=== PATIENT | male | born 1965 | race Caucasian/White ===

== ENCOUNTER → 2017-07-13 | Outpatient (POV) | payer OTHER, SELFPAY | PROVIDERS: Family Provider Nurse Practitioner Family; Visit Provider Internal Medicine | DX: G47.19 Other hypersomnia (principal) | CPT/HCPCS: 71020 ==

== ENCOUNTER → 2017-08-16 09:48 | Outpatient (CLI) | payer OTHER, SELFPAY ==
[2017-08-16 12:50] VITALS: BP 145/90; BP 168/95; PULSE 69; PULSE 87; RESP 16; RESP 22; O2SAT 97; O2SAT 99
[2017-08-16 12:51] VITALS: PULSE 69; PULSE 72
== END ==
PROVIDERS: Family Provider Nurse Practitioner Family; PCP Nurse Practitioner Family; Visit Provider Internal Medicine
DX: R06.02 Shortness of breath (principal)
CPT/HCPCS: 94060; 94618; 94640; 94726; 94727; 94729

== ENCOUNTER → 2017-10-14 07:57 | Outpatient (CLI) | payer OTHER, SELFPAY ==
--- NOTE | 2017-10-14 08:02 | US_ITS ---
US liver HISTORY: ITS.REASON: ELEVATED LIVER ENZYMES ORDERING PHYSICIAN: Taylor Miller PATIENT AGE: 52 years COMPARISON: None FINDINGS: PANCREAS:Unremarkable. No obvious mass or abnormal fluid collection. No ductal dilatation LIVER:There are diffuse increased echogenicity of the liver with poor through transmission of sound consistent with fatty liver. Normal sized portal vein. Normal size common bile duct. Appropriate directional blood flow within the portal vein. No focal liver lesions demonstrated. RIGHT KIDNEY:Right kidney measures 17 x 7 x 11 cm. There is a 7 x 8 cm cyst along the upper pole of the right kidney. No hydronephrosis GALLBLADDER:No gallstones, gallbladder wall thickening, pericholecystic fluid, or biliary dilatation. IMPRESSION: 1. Fatty liver. 2. Right renal cyst. 3. Otherwise negative hepatic/right upper quadrant ultrasound
== END ==
PROVIDERS: Family Provider Nurse Practitioner Family; PCP Nurse Practitioner Family; Visit Provider Nurse Practitioner Family
DX: R74.8 Abnormal levels of other serum enzymes (principal)
CPT/HCPCS: 76705

== ENCOUNTER → 2017-11-16 10:02 | Outpatient (CLI) | payer OTHER, SELFPAY ==
--- NOTE | 2017-11-16 10:10 | XR_ITS ---
XR ankle LT min 3V HISTORY: Pain and swelling ORDERING PHYSICIAN: Taylor Miller PATIENT AGE: 52 years FINDINGS: No acute fracture or dislocation. Well-circumscribed 8 mm calcific density is present at the tip of the medial malleolus and may be due to an old avulsion fracture. The joint space is well preserved. Small calcaneal spur is present. IMPRESSION: Old avulsion fracture of the medial malleolus, no acute finding
--- NOTE | 2017-11-16 10:10 | XR_ITS ---
XR ankle RT min 3V HISTORY: ITS.REASON: WILLARD ANKLE AND JOINT PAIN ORDERING PHYSICIAN: Taylor Miller PATIENT AGE: 52 years COMPARISON: FINDINGS: No fracture or dislocation. No lytic or blastic change. There is normal mineralization.. The joint spaces are well-preserved. No significant degenerative/arthritic changes. No erosive changes evident. There is a small calcaneal spur IMPRESSION: Small calcaneal spur otherwise negative right ankle
== END ==
PROVIDERS: PCP Nurse Practitioner Family; Visit Provider Nurse Practitioner Family
DX: M25.572 Pain in left ankle and joints of left foot (principal); M25.571 Pain in right ankle and joints of right foot
CPT/HCPCS: 73610

== ENCOUNTER → 2018-01-11 09:58 | Outpatient (CLI) | payer OTHER, SELFPAY ==
--- NOTE | 2018-01-11 10:04 | CA_ITS ---
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 apical images poor due to very tender scar from co-arc surgery. PATIENT INFORMATION HEIGHT: 68 WEIGHT:251 GENDER: Male B/P:118/88 2-D/M-MODE INTERPRETATION: 2-D MEASUREMENTS OBSERVED VALUES IN CMS Right Ventricular Dimension (RVDd) 2.3 Interventricular Septum (Thickness)(IVsd) 1.4 Left Ventricular Internal Dimensions(LVIDd) 5.6 Left Ventricular Posterior Wall (Thickness)(LVPWd) 1.3 Aortic Root 3.7 Aortic Cusp Separation 1.8 Left Atrial Dimensions (LAD) 3.5 2D 1. Technically difficult study because of the patient's factor and poor acoustic windows, repeat study with definitely contrast is recommended. 2. The left atrium is mildly enlarged, left ventricle is normal size, mild concentric left ventricular hypertrophy, visually estimated ejection fraction is probably 55% with no signal wall motion abnormality, endocardial surface of very poorly visualized. 3. The right atrium and right ventricle are normal size and contractility. 4. The aortic valve is minimally thickened and fibrosed. 5. The mitral and tricuspid valvular grossly normal. 6. The pulmonic valve is poorly visualized 7. No significant pericardial effusion noted. DOPPLER INTERROGATION: Doppler interrogation of the aortic, mitral and tricuspid valvular presence of mild aortic, mild mitral and tricuspid regurgitation, tricuspid and jet velocity insufficient for calculation of the right ventricular systolic pressure, diastolic parameters are inconclusive. CONCLUSION: 1. Technically difficult study, repeat study with Definity contrast is recommended. 2. Mildly enlarged left atrium, the systolic function, visually with no obvious regional wall motion abnormality, endocardial surface of very poorly visualized, diastolic parameters are inconclusive. 3. Mild aortic, mild mitral and tricuspid regurgitation 4. No significant pericardial effusion noted.
== END ==
PROVIDERS: Family Provider Nurse Practitioner Family; PCP Nurse Practitioner Family; Visit Provider Nurse Practitioner
DX: R06.02 Shortness of breath (principal); R06.9 Unspecified abnormalities of breathing
CPT/HCPCS: 93306

== ENCOUNTER → 2018-01-18 10:03 | Outpatient (CLI) | payer OTHER, SELFPAY ==
--- NOTE | 2018-01-18 10:03 | XR_ITS ---
XR foot wt bearing RT 3V HISTORY: ITS.REASON: Pain ORDERING PHYSICIAN: Sugey Rodriguez DPM PATIENT AGE: 52 years COMPARISON: None FINDINGS: There is mild hallux valgus with first metatarsophalangeal angle of 26 degrees with osteoarthritic change at the first metatarsophalangeal joint and dorsal bony spurring at the distal aspect of the first metatarsal. There is a small calcaneal spur. No fracture or dislocation. No lytic or blastic change. Mild bony hypertrophy involves the dorsal aspect of the medial cuneiform. IMPRESSION: Hallux valgus with osteoarthritis of the first MTP joint with bony hypertrophic change of the distal aspect of the first metatarsal
--- NOTE | 2018-01-18 10:03 | XR_ITS ---
XR foot wt bearing LT 3V HISTORY: ITS.REASON: pain ORDERING PHYSICIAN: Sugey Rodriguez DPM PATIENT AGE: 52 years COMPARISON: None FINDINGS: No fracture or dislocation. Normal alignment. Mild hypertrophic changes are present along the anterior and distal aspect of the tibia. Calcaneal spur is present at 9 mm. IMPRESSION: No acute finding. Normal alignment. Calcaneal spur.
--- NOTE | 2018-01-18 10:03 | XR_ITS ---
XR ankle wt bearing RT min 3V HISTORY: ITS.REASON: pain ORDERING PHYSICIAN: Sugey Rodriguez DPM PATIENT AGE: 52 years Comparison: None FINDINGS: No fracture or dislocation. No lytic or blastic change. There is normal mineralization.. The joint spaces are well-preserved. No significant degenerative/arthritic changes. No erosive changes evident. The talar dome has an unremarkable appearance. There is an os trigonum is a normal variant IMPRESSION: Negative ankle, no acute finding
--- NOTE | 2018-01-18 10:03 | XR_ITS ---
XR ankle wt bearing LT min 3V HISTORY: ITS.REASON: pain ORDERING PHYSICIAN: Sugey Rodriguez DPM PATIENT AGE: 52 years Comparison: None FINDINGS: No fracture or dislocation. No lytic or blastic change. There is normal mineralization.. The joint spaces are well-preserved. No significant degenerative/arthritic changes. No erosive changes evident. There are mild hypertrophic changes along the major distal aspect of the tibia Unremarkable Talar dome. A bipartite os trigonum is noted IMPRESSION: Mild hypertrophic changes/spurring along the anterior distal aspect of the tibia otherwise negative left ankle
== END ==
PROVIDERS: Visit Provider Podiatrist
DX: M25.579 Pain in unspecified ankle and joints of unspecified foot (principal); M79.671 Pain in right foot; M79.672 Pain in left foot
CPT/HCPCS: 73610; 73630

== ENCOUNTER → 2018-02-02 06:14 | Outpatient (CLI) | payer OTHER, SELFPAY ==
--- NOTE | 2018-02-02 07:09 | HMH.ITSHM ---
GARLIC MILK THISTLE MAGNESIUM BEET ROOT COD LIVER OMEPRAZOLE AMLODIPINE FUROSEMIDE SULFASALAZINE POTASSIUM
--- NOTE | 2018-02-02 09:26 | HMH.ITSHM ---
omeprazole amlodipine furosemide sulfasalazine potassium
[2018-02-02 11:30] LABS: Erythrocyte Sedimentation Rate 8 mm/hr (0-20)
[2018-02-02 11:42] LABS: C-Reactive Protein 0.3 mg/L (0.0-0.9)
--- NOTE | 2018-02-02 11:51 | XR_ITS ---
XR chest 2V HISTORY: Chest pain, ORDERING PHYSICIAN: Leon Alarcon MD PATIENT AGE: 52 years COMPARISON: 07/13/2017 FINDINGS: Unremarkable cardiovascular structures. Mediastinum has slightly prominent appearance. Nonspecific may be due to vascular ectasia. Probably not significant changed given slight difference in rotation. No acute bony anomalies. Calcified granulomas are present in the left lower lobe. The remaining lungs are clear. IMPRESSION: No acute finding. Mild prominence of the mediastinum nonspecific
--- NOTE | 2018-02-02 11:54 | NM_ITS ---
History and Indications: Coronary artery disease, status post bypass, hypertension, family history and shortness of breath Procedure: Patient exercised on Ricky protocol 8 minutes, resting heart rate was 65 bpm resting blood pressure 147/82, with exercise maximum heart rate achieved was 1 26 bpm which is equal to 76% of the maximum predicted heart rate and a blood pressure was 184/76. Test was started due to shortness of breath and fatigue, patient denied any complained of chest pain. Patient has good exercise capacity achieved 10.1mets of workload on treadmill, the blood pressure response to exercise was adequate. Electrocardiogram: Resting electrocardiogram showed sinus rhythm nonspecific ST-T changes, possible high lateral infarct, with exercise there is less than 1.[address] segment depression noted from the baseline EKG. The EKG portion of the exercise Myoview is nondiagnostic as patient did not achieve the target heart rate and baseline abnormal EKG. Cardiac stress and resting SPECT images: Cardiac stress and rest SPECT images were obtained using technetium 99 Myoview 32.4 mCi at stress and 10.5 mCi at rest. Gated SPECT further analysis of segmental wall motion and calculation of the ejection fraction also done. Cardiac stress and rest images show decreased tracer activity in the anteroapical and anteroseptal wall which improves on the resting images suggestive of reversible ischemia, computer derived ejection fraction is 49% with anteroapical and anteroseptal wall hypokinesis. Right ventricle is normal size and contractility. Conclusion: 1. The EKG portion of the exercise Myoview is nondiagnostic as patient did not achieve the target heart rate, patient has good exercise capacity achieved 10.1mets of workload on treadmill, the blood pressure response to exercise was adequate, test was started due to shortness of breath. 2. Scintigraphic evidence of reversible ischemia involving the anteroapical and anteroseptal wall, computer derived ejection fraction is 49% with segmental wall motion abnormality described above, right ventricle is normal size and contractility. 3. Abnormal exercise Myoview study
[2018-02-04 17:57] LABS: RA Latex Turbid. 16.3 IU/mL (0.0-13.9)
[2018-02-06 01:08] LABS: Anti-Cyclic Citrullinated Pept 7 units (0-19)
[2018-02-10 09:07] LABS: HLA-B27 Negative (.)
== END ==
PROVIDERS: Internal Medicine Rheumatology; Family Provider Nurse Practitioner Family; PCP Nurse Practitioner Family; Visit Provider Internal Medicine
DX: R06.00 Dyspnea, unspecified (principal); R60.9 Edema, unspecified; R94.31 Abnormal electrocardiogram [ECG] [EKG]; I10 Essential (primary) hypertension; K21.9 Gastro-esophageal reflux disease without esophagitis; R61 Generalized hyperhidrosis; J44.9 Chronic obstructive pulmonary disease, unspecified; R53.83 Other fatigue; Z87.74 Personal history of (corrected) congenital malformations of heart and circulatory system
CPT/HCPCS: 36415; 71046; 78452; 85651; 86140; 86200; 86431; 86812; 93017; A9502

== ENCOUNTER → 2018-12-15 08:56 | Outpatient (CLI) | payer OTHER, SELFPAY ==
[2018-12-15 10:17] LABS: Alanine Aminotransferase 55 U/L (12-78); Albumin Level 3.5 gm/dL (3.4-5.0); Alkaline Phosphatase 117 U/L (46-116); Aspartate Amino Transferase 36 U/L (15-37); Bilirubin,Direct 0.2 mg/dL (0.0-0.2); Bilirubin,Indirect 0.7 mg/dL (0.0-0.9); Bilirubin,Total 0.9 mg/dL (0.2-1.0); Chol/HDL Ratio 2.2 (1-3.5); Cholesterol 106 mg/dL (140-200); HDL Cholesterol 48 mg/dL (27-67); LDL Cholesterol 37 mg/dL (0-130); Total Protein,Serum 6.8 gm/dL (6.4-8.2); Triglycerides 105 mg/dL (30-200); VLDL Cholesterol 21 mg/dL (0-40)
== END ==
PROVIDERS: Nurse Practitioner Family; Visit Provider Internal Medicine
DX: E78.5 Hyperlipidemia, unspecified (principal); I11.9 Hypertensive heart disease without heart failure
CPT/HCPCS: 36415; 80061; 80076

== ENCOUNTER → 2019-04-03 11:57 | Outpatient (CLI) | payer OTHER, SELFPAY ==
--- NOTE | 2019-04-03 12:13 | XR_ITS ---
PROCEDURE: XR FINGER RT MIN 2V CLINICAL INDICATION: RT THUMB stiffness Right thumb stiffness with pain COMPARISON: No exams were available for comparison FINDINGS: No fracture or dislocation. No lytic or blastic change. There is normal mineralization. There are minimal osteoarthritic changes of the 1st metacarpal-carpal and 1st interphalangeal joint as well as the 1st carpometacarpal joint.. Other findings:None. IMPRESSION: Mild osteoarthritic change otherwise negative Dictated by: Jero Jose MD 04/03/2019 15:07 Electronically signed by Jero Jose MD in [place] 04/03/2019 15:07
--- NOTE | 2019-04-03 12:13 | XR_ITS ---
PROCEDURE: XR FINGER LT MIN 2V CLINICAL INDICATION: LT THUMB STIFFNESS COMPARISON: No exams were available for comparison FINDINGS: No fracture or dislocation. No lytic or blastic change. There is normal mineralization. The joint spaces are well-preserved. No significant degenerative/arthritic changes. No erosive changes evident. Other findings:None. IMPRESSION: Negative left thumb Dictated by: Jero Jose MD 04/03/2019 15:08 Electronically signed by Jero Jose MD in [place] 04/03/2019 15:08
== END ==
PROVIDERS: PCP Nurse Practitioner Family; Visit Provider Nurse Practitioner Family
DX: M65.312 Trigger thumb, left thumb (principal); M65.311 Trigger thumb, right thumb
CPT/HCPCS: 73140